=== PATIENT | female | born 1970 | race Caucasian/White ===

== ENCOUNTER 2023-02-08 08:30 | Outpatient (CLI) | payer OTHER | END 2023-02-08 08:31 | disposition home or self-care (01) | LOC: CSHMAMMO 08:30 | PROVIDERS: ATTEND Nurse Practitioner Family | DX: Z12.31 Encounter for screening mammogram for malignant neoplasm of breast (principal) | CPT/HCPCS: 77063; 77067 ==

== ENCOUNTER 2023-08-29 08:57 | Outpatient (CLI) | payer OTHER | END 2023-08-29 08:58 | disposition home or self-care (01) | LOC: CSHMAMMO 08:57 | PROVIDERS: ATTEND Obstetrics & Gynecology | DX: R92.8 Other abnormal and inconclusive findings on diagnostic imaging of breast (principal) | CPT/HCPCS: G0279 ==

== ENCOUNTER 2024-09-10 15:43 | Outpatient (CLI) | payer OTHER | END 2024-09-10 15:44 | disposition home or self-care (01) | LOC: CSHMAMMO 15:43 | PROVIDERS: ATTEND Obstetrics & Gynecology | DX: Z12.31 Encounter for screening mammogram for malignant neoplasm of breast (principal) | CPT/HCPCS: 77063; 77067 ==